=== PATIENT | female | born 1945 | race Caucasian/White ===

== ENCOUNTER 2020-01-20 16:45 | Inpatient (IN) ==
[~2020-01-20 16:45] MED LIST: DIPRIVAN VIAL ONE; EPHEDRINE SULFATE INJ ONE; NEOSTIGMINE INJ ONE; NORCURON INJ 10 MG VIAL ONE; QUELICIN (OR ANECTINE) ONE; ROBINUL ONE; TORADOL 30 MG VIAL ONE; VERSED ONE; ZOFRAN INJ 4 MG VIAL ONE
[2020-01-20 17:45] VITALS: BMI 23.9
[2020-01-20] MEDS ORDERED: LR 1000 ML IV 1,000 ML IV SCH ×2 (18:00)
--- NOTE | 2020-01-20 18:14 | RAD ---
HISTORYPRE OP: APPENDIXSTUDYCHEST, 1 VIEWCOMPARISONNoneFINDINGSThe heart is mildly enlarged. The pulmonary vessels are normal. The lungs are mildly hyperinflated. There are mild linear densities scattered along both lung bases. No consolidation or effusion is seen. The bones are intact.IMPRESSIONMild cardiomegaly.Mild chronic obstructive lung changes with mild discoid atelectasis or scarring along the lung bases.Electronically signed by: MARY ROCHE (Jan 20, 2020 18:12:56)
[2020-01-20 18:22] LABS: BASOPHILS % (AUTO) 0.3 % (0.2-1.0); EOSINOPHILS # (AUTO) 0.1 x10^3/uL (0.0-0.2); EOSINOPHILS % (AUTO) 0.6 % (0.9-2.9); HEMATOCRIT 34.6 % (36.0-47.0); HEMOGLOBIN 11.7 g/dL (12.0-16.0); LYMPHOCYTES # (AUTO) 1.4 X10^3/uL (1.3-2.9); LYMPHOCYTES % (AUTO) 11.5 % (21.0-51.0); MEAN CORPUSCULAR HEMOGLOBIN 30.2 pg (27.0-34.0); MEAN CORPUSCULAR HGB CONC 33.7 g/dL (33.0-35.0); MEAN CORPUSCULAR VOLUME 89.5 fL (80.0-100.0); MEAN PLATELET VOLUME 8.9 fL (7.4-11.0); MONOCYTES # (AUTO) 0.7 x10^3/uL (0.3-0.8); MONOCYTES % (AUTO) 6.3 % (0.0-13.0); NEUTROPHILS # (AUTO) 9.6 x10^3/uL (2.2-4.8); NEUTROPHILS % (AUTO) 81.3 % (42.0-75.0); PLATELET COUNT 162 X10^3/uL (150.0-450.0); RED BLOOD COUNT 3.87 X10^6/uL (3.5-5.4); RED CELL DISTRIBUTION WIDTH 14.7 % (11.6-16.5); WHITE BLOOD COUNT 11.8 X10^3/uL (3.6-10.0)
[2020-01-20 18:31] LABS: ALANINE AMINOTRANSFERASE 45 Units/L (12-78); ALBUMIN 3.3 g/dL (3.4-5.0); ALKALINE PHOSPHATASE 59 Units/L (46-116); ASPARTATE AMINO TRANSFERASE 20 Units/L (15-37); BLOOD UREA NITROGEN 17 mg/dL (7-18); CALCIUM 9.4 mg/dL (8.5-10.1); CARBON DIOXIDE 31.2 mmol/L (21-32); CHLORIDE 98 mmol/L (98-107); CREATININE 0.76 mg/dL (0.55-1.02); SODIUM 136 mmol/L (136-145); TOTAL PROTEIN 7.1 g/dL (6.4-8.2); eGFR NON BLACK RACES > 60 (>60)
[2020-01-20] MEDS: ZOSYN VIAL 3.375 GRAMS 3.375 G in NS 100 ML IV + SPIKE MINIBAG* 100 ML IV SCH (18:32)
[2020-01-20] MEDS ORDERED: FENTANYL INJ 250 mcg ONE (18:50)
[2020-01-20] MEDS ORDERED: BACTROBAN TOPICAL OINT ONE (20:15)
[2020-01-20] MEDS ORDERED: BENADRYL INJ 50 MG VIAL IVP PRN (20:29)
[2020-01-20] MEDS ORDERED: ZOFRAN INJ 4 MG VIAL IVP PRN (20:29)
[2020-01-20] MEDS ORDERED: REGLAN INJ 10 MG VIAL IVP PRN (20:29)
[2020-01-20] MEDS ORDERED: DILAUDID INJ IVP PRN (20:29)
[2020-01-20] MEDS ORDERED: PHENERGAN INJ 25 MG IM PRN (20:29)
--- NOTE | 2020-01-20 20:50 | OR.IMMED ---
Immediate Post-Op Note - Immediate Post-Op Note Pre-Op Diagnosis: acute appendicitis , diverticulitis Post-Op Diagnosis: acute and chronic sigmoid diverticulitis located on top of the cecum and appendix with dense scars obscuring the anatomy . underlining neoplasm could not be R/O Procedure: diagnostic laparoscopy , lysis of adhesions . Bx of RLQ and drainage . Specimens Removed: tissue from RLQ . C&S. Estimated Blood Loss: 15 to 20 cc Drains: Meet Barron Condition: Stable (on IV ATB , IVF)
[2020-01-20] MEDS: D5 1/2 NS 1000 ML 1,000 ML IV SCH (21:30)
[2020-01-20] MEDS: FLAGYL IV PREMIX 500 MG BAG 500 MG/100 ML BAG IV SCH (21:45)
[2020-01-21] MEDS: ZOSYN VIAL 3.375 GRAMS 3.375 G in NS 100 ML IV + SPIKE MINIBAG* 100 ML IV SCH ×4 (00:45→18:24)
[2020-01-21] MEDS: FLAGYL IV PREMIX 500 MG BAG 500 MG/100 ML BAG IV SCH ×4 (03:15→21:04)
[2020-01-21 05:25] LABS: BASOPHILS % (AUTO) 0.2 % (0.2-1.0); EOSINOPHILS # (AUTO) 0.1 x10^3/uL (0.0-0.2); EOSINOPHILS % (AUTO) 0.8 % (0.9-2.9); HEMATOCRIT 28.6 % (36.0-47.0); HEMOGLOBIN 9.9 g/dL (12.0-16.0); LYMPHOCYTES # (AUTO) 1.2 X10^3/uL (1.3-2.9); LYMPHOCYTES % (AUTO) 14.6 % (21.0-51.0); MEAN CORPUSCULAR HEMOGLOBIN 30.9 pg (27.0-34.0); MEAN CORPUSCULAR HGB CONC 34.7 g/dL (33.0-35.0); MEAN CORPUSCULAR VOLUME 89.3 fL (80.0-100.0); MEAN PLATELET VOLUME 9.1 fL (7.4-11.0); MONOCYTES # (AUTO) 0.6 x10^3/uL (0.3-0.8); MONOCYTES % (AUTO) 7.1 % (0.0-13.0); NEUTROPHILS # (AUTO) 6.4 x10^3/uL (2.2-4.8); NEUTROPHILS % (AUTO) 77.3 % (42.0-75.0); PLATELET COUNT 143 X10^3/uL (150.0-450.0); RED CELL DISTRIBUTION WIDTH 14.7 % (11.6-16.5); WHITE BLOOD COUNT 8.3 X10^3/uL (3.6-10.0)
[2020-01-21 05:50] LABS: ALANINE AMINOTRANSFERASE 35 Units/L (12-78); ALBUMIN 2.6 g/dL (3.4-5.0); ALKALINE PHOSPHATASE 52 Units/L (46-116); ASPARTATE AMINO TRANSFERASE 15 Units/L (15-37); BLOOD UREA NITROGEN 20 mg/dL (7-18); CARBON DIOXIDE 27.7 mmol/L (21-32); CHLORIDE 100 mmol/L (98-107); COR CA(FOR HYPOALB) 9.1 mg/dL (8.5-10.1); CREATININE 0.85 mg/dL (0.55-1.02); SODIUM 135 mmol/L (136-145); TOTAL PROTEIN 5.8 g/dL (6.4-8.2); eGFR NON BLACK RACES > 60 (>60)
[2020-01-21] MEDS: D5 1/2 NS 1000 ML 1,000 ML IV SCH (08:32)
[2020-01-21] MEDS: LOVENOX INJ 40 MG SYR SC SCH (08:34)
[2020-01-21] MEDS: PROTONIX INJ 40 MG VIAL IVP SCH (08:35)
[2020-01-21] MEDS: NS 1000 ML 1,000 ML IV SCH ×2 (10:35→21:04)
--- NOTE | 2020-01-21 11:13 | DR.PROGNOT ---
Hospital Progress Notes - Progress Note for Day of: Progress Note Date: 01/21/20 - Chief Complaint Chief Complaint: comfortable with moderate abdominal pain . tolerating liquid diet . WBC 8.3. minimal drainage in DANIEL. afebrile . - Past Medical Family Social History Past Med/Fam/Surg Hx: No changes since H&P Allergies: Allergies ciprofloxacin Allergy (Verified 01/20/20 17:26) - Review Of Systems ROS: No change since H&P - Vital Signs Vital Signs: Temperature 98.1 F Pulse Rate 64 Respiratory Rate 20 Blood Pressure 104/55 O2 Sat by Pulse Oximetry 99 - Physical Exam Oriented: Normal Eyes: Normal Ear: Normal Respiratory: Normal Cardiovascular: Normal GI:Auscultation: Decreased GI:Palpation: Normal GI: Tenderness: RLQ, Moderate Skin: Normal Mood Description: Calm Speech Pattern: Clear, Appropriate - Laboratory and Diagnostics Result Diagrams: 01/21/20 04:08 01/21/20 04:08 Labs: 01/20/20 21:29 Peritoneal Fluid Gram Stain - Final Laboratory WBC 8.3 X10^3/uL (3.6-10.0) 01/21/20 04:08 RBC 3.20 X10^6/uL (3.5-5.4) L 01/21/20 04:08 Hgb 9.9 g/dL (12.0-16.0) L 01/21/20 04:08 Hct 28.6 % (36.0-47.0) L 01/21/20 04:08 MCV 89.3 fL (80.0-100.0) 01/21/20 04:08 MCH 30.9 pg (27.0-34.0) 01/21/20 04:08 MCHC 34.7 g/dL (33.0-35.0) 01/21/20 04:08 RDW 14.7 % (11.6-16.5) 01/21/20 04:08 Plt Count 143 X10^3/uL (150.0-450.0) L 01/21/20 04:08 MPV 9.1 fL (7.4-11.0) 01/21/20 04:08 Neut % (Auto) 77.3 % (42.0-75.0) H 01/21/20 04:08 Lymph % (Auto) 14.6 % (21.0-51.0) L 01/21/20 04:08 Mcintosh % (Auto) 7.1 % (0.0-13.0) 01/21/20 04:08 Eos % (Auto) 0.8 % (0.9-2.9) L 01/21/20 04:08 Baso % (Auto) 0.2 % (0.2-1.0) 01/21/20 04:08 Neut # (Auto) 6.4 x10^3/uL (2.2-4.8) H 01/21/20 04:08 Lymph # (Auto) 1.2 X10^3/uL (1.3-2.9) L 01/21/20 04:08 Mcintosh # (Auto) 0.6 x10^3/uL (0.3-0.8) 01/21/20 04:08 Eos # (Auto) 0.1 x10^3/uL (0.0-0.2) 01/21/20 04:08 Baso # (Auto) 0.0 X10^3/uL (0.0-0.1) 01/21/20 04:08 Absolute Nucleated RBC 0.0 /100WBC 01/21/20 04:08 Sodium 135 mmol/L (136-145) L 01/21/20 04:08 Corrected Sodium TNP 01/21/20 04:08 Potassium 3.7 mmol/L (3.5-5.1) 01/21/20 04:08 Chloride 100 mmol/L (98-107) 01/21/20 04:08 Carbon Dioxide 27.7 mmol/L (21-32) 01/21/20 04:08 BUN 20 mg/dL (7-18) H 01/21/20 04:08 Creatinine 0.85 mg/dL (0.55-1.02) 01/21/20 04:08 Est GFR (MDRD) Af Amer > 60 (>60) 01/21/20 04:08 Est GFR (MDRD) Non-Af > 60 (>60) 01/21/20 04:08 Glucose 106 mg/dL (65-99) H 01/21/20 04:08 Calcium 8.0 mg/dL (8.5-10.1) L 01/21/20 04:08 Corrected Calcium 9.1 mg/dL (8.5-10.1) 01/21/20 04:08 Total Bilirubin 0.70 mg/dL (0.2-1.0) 01/21/20 04:08 AST 15 Units/L (15-37) 01/21/20 04:08 ALT 35 Units/L (12-78) 01/21/20 04:08 Alkaline Phosphatase 52 Units/L (46-116) 01/21/20 04:08 Total Protein 5.8 g/dL (6.4-8.2) L 01/21/20 04:08 Albumin 2.6 g/dL (3.4-5.0) L 01/21/20 04:08 Globulin 3.2 g/dL (2.5-4.5) 01/21/20 04:08 Albumin/Globulin Ratio 0.8 Ratio (1.1-2.1) L 01/21/20 04:08 Tissue Pathology To follow 01/20/20 21:19 - Assessment and Plan 1: post op diagnostic laparoscopy , lysis of adhesions. Bx RLQ and drainage . acute diverticulitis with dense adhesions RLQ . same IV ATB , advance diet and same PO care
[2020-01-22] MEDS: ZOSYN VIAL 3.375 GRAMS 3.375 G in NS 100 ML IV + SPIKE MINIBAG* 100 ML IV SCH ×2 (01:45→05:45)
[2020-01-22] MEDS: NS 1000 ML 1,000 ML IV SCH ×2 (02:23→10:00)
[2020-01-22] MEDS: FLAGYL IV PREMIX 500 MG BAG 500 MG/100 ML BAG IV SCH ×3 (03:41→10:07)
[2020-01-22 06:25] LABS: BASOPHILS % (AUTO) 0.2 % (0.2-1.0); EOSINOPHILS # (AUTO) 0.1 x10^3/uL (0.0-0.2); EOSINOPHILS % (AUTO) 1.6 % (0.9-2.9); HEMATOCRIT 27.3 % (36.0-47.0); HEMOGLOBIN 9.4 g/dL (12.0-16.0); LYMPHOCYTES # (AUTO) 0.9 X10^3/uL (1.3-2.9); LYMPHOCYTES % (AUTO) 12.7 % (21.0-51.0); MEAN CORPUSCULAR HEMOGLOBIN 31.2 pg (27.0-34.0); MEAN CORPUSCULAR HGB CONC 34.5 g/dL (33.0-35.0); MEAN CORPUSCULAR VOLUME 90.3 fL (80.0-100.0); MEAN PLATELET VOLUME 9.7 fL (7.4-11.0); MONOCYTES # (AUTO) 0.6 x10^3/uL (0.3-0.8); MONOCYTES % (AUTO) 8.4 % (0.0-13.0); NEUTROPHILS # (AUTO) 5.4 x10^3/uL (2.2-4.8); NEUTROPHILS % (AUTO) 77.1 % (42.0-75.0); PLATELET COUNT 148 X10^3/uL (150.0-450.0); RED BLOOD COUNT 3.02 X10^6/uL (3.5-5.4); RED CELL DISTRIBUTION WIDTH 14.5 % (11.6-16.5); WHITE BLOOD COUNT 7.1 X10^3/uL (3.6-10.0)
[2020-01-22 06:45] LABS: ALANINE AMINOTRANSFERASE 31 Units/L (12-78); ALBUMIN 2.4 g/dL (3.4-5.0); ALKALINE PHOSPHATASE 49 Units/L (46-116); ASPARTATE AMINO TRANSFERASE 16 Units/L (15-37); BLOOD UREA NITROGEN 11 mg/dL (7-18); CALCIUM 8.4 mg/dL (8.5-10.1); CARBON DIOXIDE 25.3 mmol/L (21-32); CHLORIDE 105 mmol/L (98-107); COR CA(FOR HYPOALB) 9.7 mg/dL (8.5-10.1); CREATININE 0.74 mg/dL (0.55-1.02); SODIUM 139 mmol/L (136-145); TOTAL PROTEIN 5.8 g/dL (6.4-8.2); eGFR NON BLACK RACES > 60 (>60)
[2020-01-22] MEDS: PROTONIX INJ 40 MG VIAL IVP SCH (09:16)
[2020-01-22] MEDS: LOVENOX INJ 40 MG SYR SC SCH ×2 (09:18→10:07)
--- NOTE | 2020-01-22 10:42 | DR.PROGNOT ---
Hospital Progress Notes - Progress Note for Day of: Progress Note Date: 01/22/20 - Chief Complaint Chief Complaint: comfortable with moderate abdominal pain . tolerating liquid diet . WBC 8.3. moderate drainage in DANIEL. no BM yet . afebrile . - Past Medical Family Social History Past Med/Fam/Surg Hx: No changes since H&P Allergies: Allergies ciprofloxacin Allergy (Verified 01/20/20 17:26) - Review Of Systems ROS: No change since H&P - Vital Signs Vital Signs: Temperature 99.2 F Pulse Rate [Brachial] 74 Pulse Rate 70 Respiratory Rate 18 Blood Pressure [Left Arm] 136/62 Blood Pressure 118/57 O2 Sat by Pulse Oximetry 92 - Physical Exam Oriented: Normal Eyes: Normal Ear: Normal Respiratory: Normal Cardiovascular: Normal GI:Auscultation: Decreased GI:Palpation: Normal GI: Tenderness: RLQ (mild lower abdominal tenderness , BS+) Skin: Normal Mood Description: Calm Speech Pattern: Clear, Appropriate - Laboratory and Diagnostics Result Diagrams: 01/22/20 05:37 01/22/20 05:37 Labs: 01/20/20 21:29 Peritoneal Fluid Gram Stain - Final 01/20/20 21:29 Peritoneal Fluid - Preliminary Laboratory WBC 7.1 X10^3/uL (3.6-10.0) 01/22/20 05:37 RBC 3.02 X10^6/uL (3.5-5.4) L 01/22/20 05:37 Hgb 9.4 g/dL (12.0-16.0) L 01/22/20 05:37 Hct 27.3 % (36.0-47.0) L 01/22/20 05:37 MCV 90.3 fL (80.0-100.0) 01/22/20 05:37 MCH 31.2 pg (27.0-34.0) 01/22/20 05:37 MCHC 34.5 g/dL (33.0-35.0) 01/22/20 05:37 RDW 14.5 % (11.6-16.5) 01/22/20 05:37 Plt Count 148 X10^3/uL (150.0-450.0) L 01/22/20 05:37 MPV 9.7 fL (7.4-11.0) 01/22/20 05:37 Neut % (Auto) 77.1 % (42.0-75.0) H 01/22/20 05:37 Lymph % (Auto) 12.7 % (21.0-51.0) L 01/22/20 05:37 Harding % (Auto) 8.4 % (0.0-13.0) 01/22/20 05:37 Eos % (Auto) 1.6 % (0.9-2.9) 01/22/20 05:37 Baso % (Auto) 0.2 % (0.2-1.0) 01/22/20 05:37 Neut # (Auto) 5.4 x10^3/uL (2.2-4.8) H 01/22/20 05:37 Lymph # (Auto) 0.9 X10^3/uL (1.3-2.9) L 01/22/20 05:37 Harding # (Auto) 0.6 x10^3/uL (0.3-0.8) 01/22/20 05:37 Eos # (Auto) 0.1 x10^3/uL (0.0-0.2) 01/22/20 05:37 Baso # (Auto) 0.0 X10^3/uL (0.0-0.1) 01/22/20 05:37 Absolute Nucleated RBC 0.0 /100WBC 01/22/20 05:37 Sodium 139 mmol/L (136-145) 01/22/20 05:37 Corrected Sodium TNP 01/22/20 05:37 Potassium 3.7 mmol/L (3.5-5.1) 01/22/20 05:37 Chloride 105 mmol/L (98-107) 01/22/20 05:37 Carbon Dioxide 25.3 mmol/L (21-32) 01/22/20 05:37 BUN 11 mg/dL (7-18) 01/22/20 05:37 Creatinine 0.74 mg/dL (0.55-1.02) 01/22/20 05:37 Est GFR (MDRD) Af Amer > 60 (>60) 01/22/20 05:37 Est GFR (MDRD) Non-Af > 60 (>60) 01/22/20 05:37 Glucose 102 mg/dL (65-99) H 01/22/20 05:37 Calcium 8.4 mg/dL (8.5-10.1) L 01/22/20 05:37 Corrected Calcium 9.7 mg/dL (8.5-10.1) 01/22/20 05:37 Total Bilirubin 0.60 mg/dL (0.2-1.0) 01/22/20 05:37 AST 16 Units/L (15-37) 01/22/20 05:37 ALT 31 Units/L (12-78) 01/22/20 05:37 Alkaline Phosphatase 49 Units/L (46-116) 01/22/20 05:37 Total Protein 5.8 g/dL (6.4-8.2) L 01/22/20 05:37 Albumin 2.4 g/dL (3.4-5.0) L 01/22/20 05:37 Globulin 3.4 g/dL (2.5-4.5) 01/22/20 05:37 Albumin/Globulin Ratio 0.7 Ratio (1.1-2.1) L 01/22/20 05:37 Tissue Pathology To follow 01/20/20 21:19 - Assessment and Plan 1: post op diagnostic laparoscopy , lysis of adhesions. Bx RLQ and drainage . acute diverticulitis with dense adhesions RLQ . will discharge on oral ATB .. Flagyl 500 Q6 h and Augmentin 500 BID . keep DANIEL for 2 more days. small meals of soft low residual diet . F/U in two days in he office .
[2020-01-22 13:03] VITALS: BP 112/56
== END 2020-01-22 10:52 | disposition home or self-care (01) | DRG 337 ==
LOC: ICU → OBSVTOIN 16:45 → MED/SURG 01-21 15:00
PROVIDERS: ADMIT Obstetrics & Gynecology Obstetrics; ATTEND Obstetrics & Gynecology Obstetrics
PROC: APPYLAP (ICD-10-PCS; 2020-01-20 18:45)
DX: R10.31 Right lower quadrant pain; B96.5 Pseudomonas (aeruginosa) (mallei) (pseudomallei) as the cause of diseases classified elsewhere; K66.0 Peritoneal adhesions (postprocedural) (postinfection); K57.32 Diverticulitis of large intestine without perforation or abscess without bleeding
CPT/HCPCS: 36415; 71010; 71045; 80053; 82378; 85025; 87070; 87077; 87186; 87205; 93005; 99100; A4216; A4222; C9113; J0330; J1650; J1885; J2250; J2405; J2543; J2704; J2710; J3010; J3490; J7030; J7050; J7120; S0030; S5010